=== PATIENT | female | born 1990 | race Two or more races ===

== ENCOUNTER 2023-03-18 10:56 | Emergency (ER) | payer OTHER ==
[~2023-03-18] VITALS: Ht 160 cm; Wt 60.0 kg
[2023-03-18] MEDS ORDERED: KETOROLAC TROMETH 30 MG/ML 1ML VIAL IM ONE (11:45)
[2023-03-18] MEDS ORDERED: DexAMETHasone SOD PHOS 10MG/1ML VIAL INJ PO ONE (11:45)
[2023-03-18] MEDS ORDERED: PENI500T2 PO (12:14)
[2023-03-18] MEDS ORDERED: LIDO2SOL26 MT (12:14)
[2023-03-18] MEDS ORDERED: IBUP1TAB5 PO (12:14)
[2023-03-18 12:19] VITALS: BP 123/89; PULSE 107; RESP 18; TEMP 98.7; O2SAT 99
== END 2023-03-18 12:21 | disposition home or self-care (01) ==
LOC: ER 10:56
DX: J02.9 Acute pharyngitis, unspecified (principal)
CPT/HCPCS: 96372; 99283; J1100; J1885